=== PATIENT | female | born 1945 | race Caucasian/White ===

== ENCOUNTER 2018-01-03 12:13 | Emergency (ER) | payer MEDICARE, OTHER ==
[~2018-01-03] VITALS: Ht 147.3 cm; Wt 51.0 kg
[~2018-01-03 12:13] MED LIST: ALPR.25 PO; AMLO5 PO; Aspirin Chew CHEW; HYDR200T3 PO; LIPI80TA PO; LOSA100T PO; METH500T3 PO; METO25TA3 PO; OXYC1TAB63 PO; PRED5TAB PO; SYMB80AE INH
[2018-01-03 12:14] VITALS: BP 155/73; PULSE 112; RESP 19; TEMP 98.3; O2SAT 89
[2018-01-03] MEDS ORDERED: FURO1TAB62 PO (12:36)
[2018-01-03] MEDS ORDERED: VERA180C3 PO (12:36)
[2018-01-03] MEDS ORDERED: POTA-163 PO (12:36)
[2018-01-03] MEDS ORDERED: VENTAER INH (12:36)
--- NOTE | 2018-01-03 13:45 | RADRPT ---
EXAM DATE/TIME: 01/03/2018 13:06 [facility] COMPARISON: No previous studies available for comparison. INDICATIONS : Right side rib pain post fall. MEDICAL HISTORY : Scolosis,Cardiovascular disease. Hypertension. SURGICAL HISTORY : None. ENCOUNTER: Initial ACUITY: 2 days PAIN SCORE: 5/10 LOCATION: Right posterior ribs FINDINGS: Expiratory chest reveals no evidence of pneumothorax. Marked scoliosis is noted with sternal wires f rom previous bypass. I do not see displaced rib fracture. CONCLUSION: Marked scoliosis nondisplaced rib fracture. Scoliosis and osteopenia limits the sens itivity of this exam. Frank Kirby MD FACR on January 03, 2018 at 13:42 Board Certified Radiologist. This report was verified electronically.
--- NOTE | 2018-01-03 13:49 | PD ---
HPI Chief Complaint: Fall Time Seen by Provider: 12:53 Travel History International Travel<30 days: No Contact w/Intl Traveler<30days: No Traveled to known affect area: No History of Present Illness HPI 72-year-old female here with right rib and right arm pain after she had a mechanical fall 2 days ago. She reports while getting out of the bed she lost her balance falling forward injuring her right arm and right ribs on the bedside table and floor. Denies loss of consciousness. She is not anticoagulated. She denies headache, visual changes, neck pain, shortness of breath, abdominal pain, paresthesias or weakness of the extremities. Symptom severity is moderate. She reports pain in the ribs with twisting motion, deep inspiration, coughing or sneezing. Tylenol slightly alleviates pain. PFSH Past Medical History Asthma: Yes Autoimmune Disease: Yes (lupus ) Anxiety: Yes Cancer: No Cardiovascular Problems: Yes (VALVE ) Diminished Hearing: No Genitourinary: No Hypertension: Yes Immune Disorder: Yes (lupus) Musculoskeletal: Yes Neurologic: No Psychiatric: No Reproductive: No Respiratory: Yes (COPD) Tetanus Vaccination: < 5 Years Influenza Vaccination: No ?: Not Menopausal: Yes Dilation and Curettage (D&C): Yes Past Surgical History Abdominal Surgery: Yes (SPLEENECTOMY) Cardiac Surgery: Yes (OPEN HEART DUE TO INFECTION valve ) Gynecologic Surgery: Yes (total hysterectomy) Hysterectomy: Yes Tonsillectomy: Yes Other Surgery: Yes (BREAST REDUCTION) Social History Alcohol Use: Yes (occassionally ) Tobacco Use: No Substance Use: No Allergies-Medications (Allergen,Severity, Reaction): Coded Allergies: No Known Allergies (Unverified Adverse Reaction, Unknown, 01/03/18) Reported Meds & Prescriptions Reported Meds & Active Scripts Active Percocet (Oxycodone-Acetaminophen) 5-325 mg Tab 1-2 Tab PO Q6H PRN Reported Verapamil SR (Verapamil HCl) 180 Mg Cap 90 Mg PO DAILY Potassium Chloride ER (Potassium Chloride) 20 Meq Tab 20 Meq PO DAILY PRN Lasix (Furosemide) 20 Mg Tab 20 Mg PO DAILY PRN Ventolin Hfa 18 GM Inh (Albuterol Sulfate) 90 Mcg/Act Aer 2 Puff INH Q6H PRN Symbicort Inh (Budesonide/Formoterol Fumarate) 80-4.5 Mcg/Act Aero 1 Puff INH Q12HR Hydroxychloroquine (Hydroxychloroquine Sulfate) 200 Mg Tab 400 Mg PO DAILY Takw with food Prednisone 5 Mg Tab 5 Mg PO DAILY Review of Systems Except as stated in HPI: all other systems reviewed are Neg Physical Exam Narrative GENERAL: Alert and well-appearing 9-year-old female SKIN: Warm and dry. HEAD: Normocephalic. EYES: Pupils equal, round, reactive to light. EOMs intact. No injection or drainage. NECK: Supple, trachea midline. No midline spine tenderness CARDIOVASCULAR: Regular rate and rhythm without murmurs, gallops, or rubs. +ttp right anterior upper chest wall & posterior ribs under scapula. no crepitus. RESPIRATORY: Breath sounds equal bilaterally. No accessory muscle use. even chest rise GASTROINTESTINAL: Abdomen soft, non-tender, nondistended. MUSCULOSKELETAL: No cyanosis, or edema. +ttp right proximal humerus. 2+ distal pulses, normal sensation. brisk cap refill. BACK: severe scoliosis. Nontender spine. No CVA tenderness. Data Data Last Documented VS Vital Signs Date Time Temp Pulse Resp B/P (MAP) Pulse Ox O2 Delivery O2 Flow Rate FiO2 01/03/18 16:16 100 16 91 01/03/18 15:04 Room Air 01/03/18 12:14 98.3 155/73 (100) Orders Orders Ribs, Uni (W/Exp Cxr-Min 3vw) (01/03/18 ) Humerus (Min 2vws) (01/03/18 ) Oxycodone-Acetamin 5-325 Mg (Percocet (01/03/18 14:45) Albuterol-Ipratropium Neb (Duoneb Neb) (01/03/18 15:30) Prednisone (Deltasone) (01/03/18 15:30) MDM Medical Decision Making Medical Screen Exam Complete: Yes Emergency Medical Condition: Yes Differential Diagnosis Rib fractures, pneumothorax, humerus fracture, contusions Narrative Course 72-year-old female with rib pain and right arm pain after mechanical fall 2 days ago. She is well-appearing. In no distress. She was mildly tachycardic with a heart rate 112 & pulse ox of 89% on RA on arrival. She reports she is being followed by senior instructional designer for COPD. She reports her pulse ox typically runs in the mid 90s on room air, but was recently told by her senior instructional designer 3 days ago at a routine visit that her pulse ox was "low". She is not in any respiratory distress. X-ray revealed marked scoliosis and nondisplaced rib fracture, no pneumothorax, no pulmonary contusion. X-ray of the humerus is negative for fracture. Of note CT scanner at age [facility] nonfunctioning today. Case was discussed with my attending physician Dr. Matias. Findings were discussed with patient and family. Given patient's market scoliosis, osteoporosis, and low pulse ox CT scan of the chest was offered, although it would not change the course of treatment. He was offered admission for observation and declined. After a lengthy discussion with the patient and family myself and my attending physician believe that her lung function has steadily been declining prior to this fall. The fact that she has rib fractures and is currently in pain is causing her pulse ox to be slightly lower. Clinically she looks well. She was given a dose of Percocet, prednisone, DuoNeb breathing treatment and reports symptom improvement. HR 100, Pulse ox 92. Rib fractures discussed at length patient and family. She has used incentive spirometer in the past and was encouraged to use again. She is to increase her dose of prednisone to 50 mg per day for the next 3 days. She is to follow-up with her primary doctor in 2 days. Return precautions were discussed. Patient verbalizes understanding and agrees to plan Diagnosis Primary Impression: Closed traumatic nondisplaced fracture of rib Additional Impression: Contusion of right arm Qualified Codes: S40.021A - Contusion of right upper arm, initial encounter Referrals: Primary Care Physician 2 days Additional Instructions: Pain medication as needed. Incentive spirometer as directed. Follow-up with her primary doctor for recheck in 2 days. Return to the emergency department if you have severe increasing pain, shortness of breath, or any new concerning symptom Scripts Oxycodone-Acetaminophen (Percocet) 5-325 mg Tab 1-2 TAB PO Q6H Y for PAIN, #14 TAB 0 Refills Prov: Luli Hanks 01/03/18 Disposition: 01 DISCHARGE HOME Condition: Stable Luli Hanks Jan 03, 2018 13:49
--- NOTE | 2018-01-03 14:02 | RADRPT ---
EXAM DATE/TIME: 01/03/2018 13:06 [facility] COMPARISON: CHEST SINGLE AP, September 16, 2016, 11:47. INDICATIONS : Right arm pain post fall MEDICAL HISTORY : Cardiovascular disease. Hypertension. SURGICAL HISTORY : None. ENCOUNTER: Initial ACUITY: 2 days PAIN SCORE: 4/10 LOCATION: Right shoulder FINDINGS: The bony mineralization of the humerus is within normal limits. There are degenerative changes within the glenohumeral joint. No acute fracture is identified. The limited portion of right lung apex visualized is clear. CONCLUSION: 1. No acute fracture of the right humerus identified. William Kirby MD on January 03, 2018 at 13:58 Board Certified Radiologist. This report was verified electronically.
[2018-01-03] MEDS ORDERED: oxyCODONE/ACETAMINOPHEN 5 MG/325 MG TAB PO ONE (14:45)
[2018-01-03] MEDS ORDERED: PERC5TAB12 PO (14:50)
[2018-01-03 15:04] VITALS: PULSE 104; RESP 20; O2SAT 90
[2018-01-03] MEDS ORDERED: predniSONE 20 MG TAB PO SCH (15:30)
[2018-01-03] MEDS ORDERED: RESP: ALBUTEROL 2.5 MG/IPRATROPIUM 0.5 MG NEB (SCH) INH ONE (15:30)
[2018-01-03 16:16] VITALS: PULSE 100; RESP 16; O2SAT 91
== END 2018-01-03 16:25 | disposition home or self-care (01) ==
LOC: PHEFT 12:13
DX: S22.31XA Fracture of one rib, right side, initial encounter for closed fracture (principal); S40.021A Contusion of right upper arm, initial encounter; W06.XXXA Fall from bed, initial encounter
CPT/HCPCS: 71101; 73060; 94664; 99283; J7512